=== PATIENT | male | born 1985 | race American Indian/Alaskan Native ===

== ENCOUNTER 2019-08-24 20:33 | Emergency (ER) | payer OTHER ==
[2019-08-24 20:42] VITALS: BP 138/94
[2019-08-25] MEDS ORDERED: IBUPROFEN 800 MG TAB PO ONE (00:02)
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
== END 2019-08-25 01:30 | disposition home or self-care (01) ==
LOC: ED 20:33
DX: S16.1XXA Strain of muscle, fascia and tendon at neck level, initial encounter (principal); S39.012A Strain of muscle, fascia and tendon of lower back, initial encounter; F17.200 Nicotine dependence, unspecified, uncomplicated; Z79.1 Long term (current) use of non-steroidal anti-inflammatories (NSAID); Z79.899 Other long term (current) drug therapy; V49.49XA Driver injured in collision with other motor vehicles in traffic accident, initial encounter; Y93.89 Activity, other specified; Y92.488 Other paved roadways as the place of occurrence of the external cause; Y99.2 Volunteer activity
CPT/HCPCS: 72040; 72100